=== PATIENT | female | born 1930 | race Caucasian/White ===

== ENCOUNTER 2016-10-24 10:29 | Emergency (ER) | payer MEDICARE, OTHER ==
[~2016-10-24 10:29] MED LIST: ACCUPRIL20 MG PO; ASPIRIN81 MG PO; COMBIVENT0.074 GM/I INH; DIGOXIN125 MCG PO; GLUCERNA237 ML PO; HUMALOG100 UNIT/1 SC; HYDROCHLOROTHIA25 MG PO; IMDUR ER TAB 3030 MG PO; KLONOPIN TAB 00.5 MG PO; LANTUS100 UNIT/1 SC; LEVAQUIN500 MG PO; LIPITOR TAB 1010 MG PO; MEDROL DOSEPAK 24 MG PO; SPIRIVA HANDIH18 MCG INH; SYMBICORT 80-41 INHA INH; TOPROL XL25 MG PO; TYLENOL 325MG325 MG PO; ZOLOFT100 MG PO
[2016-10-24 11:48] LABS: HEMOGLOBIN 11.4 gm/dl (12.3-15.3); RED BLOOD COUNT 3.79 M/UL (4.00-5.10); WHITE BLOOD COUNT 8.6 K/UL (4.5-11.0)
== END 2016-10-24 12:50 | disposition home or self-care (01) ==
LOC: ER1 10:29
PROVIDERS: Emergency Medicine
DX: E86.0 Dehydration (principal); Z88.0 Allergy status to penicillin
CPT/HCPCS: 36415; 80053; 81001; 85025; 93005; 96360; 99284; J7030

== ENCOUNTER 2016-12-07 23:06 | Emergency (ER) | payer MEDICARE, OTHER ==
[2016-12-08 00:18] LABS: HEMOGLOBIN 10.5 gm/dl (12.3-15.3); RED BLOOD COUNT 3.45 M/UL (4.00-5.10); WHITE BLOOD COUNT 9.2 K/UL (4.5-11.0)
[2016-12-08 00:32] LABS: BUN/CREATININE RATIO 24 (0-10)
== END 2016-12-08 04:30 | disposition home or self-care (01) ==
LOC: ER1 23:06
PROVIDERS: Physician Assistant Medical
DX: E11.649 Type 2 diabetes mellitus with hypoglycemia without coma (principal); J44.9 Chronic obstructive pulmonary disease, unspecified; I10 Essential (primary) hypertension; Z90.49 Acquired absence of other specified parts of digestive tract; Z88.0 Allergy status to penicillin; Z79.899 Other long term (current) drug therapy; Z90.10 Acquired absence of unspecified breast and nipple
CPT/HCPCS: 36415; 71010; 80053; 81001; 82962; 84484; 85025; 87086; 99285

== ENCOUNTER → 2016-12-11 | Outpatient (CLI) | payer MEDICARE, OTHER | LOC: CT 12:31 | DX: R07.81 Pleurodynia (principal); M25.08 Hemarthrosis, other specified site; J44.0 Chronic obstructive pulmonary disease with (acute) lower respiratory infection; M54.9 Dorsalgia, unspecified; R05 Cough; R06.02 Shortness of breath; R26.81 Unsteadiness on feet; F41.9 Anxiety disorder, unspecified; E11.9 Type 2 diabetes mellitus without complications; R91.8 Other nonspecific abnormal finding of lung field; Z85.3 Personal history of malignant neoplasm of breast; R93.7 Abnormal findings on diagnostic imaging of other parts of musculoskeletal system | CPT/HCPCS: 71100; 71250 ==